=== PATIENT | female | born 1985 | race Caucasian/White ===

== ENCOUNTER 2016-12-04 18:01 | Emergency (ER) | payer OTHER ==
[2016-12-04] MEDS ORDERED: ACETAMINOPHEN 325 MG TABLET PO ONE (18:20)
--- NOTE | 2016-12-04 18:20 | ER Document Report ---
ED Medical Screen (RME) - General Stated Complaint: BODY CHILLS Notes: onset yesterday afternoon nasal drainage body aches, chills, fevers, dry cough (-) influenza vaccine I have greeted and performed a rapid initial assessment of this patient. A comprehensive ED assessment and evaluation of the patient, analysis of test results and completion of the medical decision making process will be conducted by additional ED providers. TRAVEL OUTSIDE OF THE [place] IN LAST 30 DAYS: No - Related Data Allergies/Adverse Reactions: No Known Allergies Allergy (Verified 12/04/16 18:19) Past Medical History Neurological Medical History: Reports: Hx Migraine, Hx Seizures - Patient states that she had a diagnosis of "stress-induced convulsions" - Immunizations Hx Diphtheria, Pertussis, Tetanus Vaccination: No
[2016-12-04] MEDS ORDERED: ONDANSETRON HCL 8 MG TABLET PO ONE (18:21)
--- NOTE | 2016-12-04 20:50 | ER Document Report ---
ED General - General Mode of Arrival: Ambulatory Information source: Patient TRAVEL OUTSIDE OF THE [place] IN LAST 30 DAYS: No - HPI Patient complains to provider of: Flu-like Symptoms Onset: Yesterday Onset/Duration: Gradual, Worse Associated symptoms: Body/muscle aches, Nonproductive cough, Fever, Headache, Sore throat - General Chief Complaint: Pain All Over Stated Complaint: BODY CHILLS Notes: Patient is a 31-year-old female presenting to the emergency department concerned of flulike symptoms onset yesterday. Patient reports she has been having body aches, nonproductive cough, sore throat, fever, and headache behind her eyes. Patient denies having any nasal congestion or runny nose. Patient has no other complaints. (VINCENT STOVALL) - Related Data Allergies/Adverse Reactions: No Known Allergies Allergy (Verified 12/04/16 18:19) Past Medical History - General Information source: Patient - Social History Smoking Status: Never Smoker Chew tobacco use (# tins/day): No Frequency of alcohol use: None Drug Abuse: None Lives with: Spouse/Significant other Family History: None, Reviewed & Not Pertinent Patient has suicidal ideation: No Patient has homicidal ideation: No Neurological Medical History: Reports: Hx Migraine, Hx Seizures - Patient states that she had a diagnosis of "stress-induced convulsions" Renal/ Medical History: Denies: Hx Peritoneal Dialysis - Immunizations Hx Diphtheria, Pertussis, Tetanus Vaccination: No Review of Systems - Review of Systems Constitutional: See HPI, Fever EENT: See HPI, Throat pain. denies: Nose congestion Cardiovascular: No symptoms reported Respiratory: See HPI, Cough Gastrointestinal: No symptoms reported Genitourinary: No symptoms reported Female Genitourinary: No symptoms reported Musculoskeletal: See HPI, Other - Body aches Skin: No symptoms reported Hematologic/Lymphatic: No symptoms reported Neurological/Psychological: See HPI, Headaches Physical Exam - Vital signs Interpretation: Febrile - General General appearance: Appears well, Alert - HEENT Head: Normocephalic, Atraumatic Eyes: Normal Pupils: PERRL Tympanic membrane: Normal Pharynx: Normal - Respiratory Respiratory status: No respiratory distress Chest status: Nontender Breath sounds: Nonproductive cough - harsh, dry cough Chest palpation: Normal - Cardiovascular Rhythm: Regular Heart sounds: Normal auscultation Murmur: No - Abdominal Inspection: Obese - Back Back: Normal, Nontender - Extremities General upper extremity: Normal inspection General lower extremity: Normal inspection - Neurological Neuro grossly intact: Yes Cognition: Normal Deep Coma Scale Eye Opening: Spontaneous Deep Coma Scale Verbal: Oriented Deep Coma Scale Motor: Obeys Commands [place] Coma Scale Total: 15 Speech: Normal - Psychological Associated symptoms: Normal affect, Normal mood - Skin Skin Temperature: Warm Skin Moisture: Dry Skin Color: Normal - Vital signs Vitals: Temp Pulse Resp BP Pulse Ox 102.0 F H 108 H 20 130/78 H 100 12/04/16 18:17 12/04/16 18:17 12/04/16 18:17 12/04/16 18:17 12/04/16 18:17 (JAYSON JAMESON) (VINCENT STOVALL) Discharge - Discharge Clinical Impression: Acute viral syndrome Additional Instructions: Viral Syndrome: The physician has diagnosed a viral infection. Viruses not only cause "colds," but can cause many different symptoms including generalized aching, fever, headache, cough, diarrhea, nausea, vomiting, and fatigue. The treatment, for the most part, is simply relief of symptoms. This means that antibiotics are usually not given. Rest, fluids, pain medications and, occasionally, medication for the specific symptoms that are most bothersome will be prescribed. Use good handwashing to avoid passing the virus to others. Shared toys should be cleaned with disinfectant. Clean the toilets, sinks, and counter surfaces in bathrooms. Launder clothing in hot water. Contact the physician if you develop any new or unusual symptoms such as severe headache, stiff neck, high fever, chest pain, productive cough, or shortness of breath. You should be rechecked if you don't see marked improvement within seven to 10 days. //////////////////////////////////////////////////////////////////////////////// ////////////////////////////////////////////////////////////////////////////// Drink plenty of fluids. Get plenty of rest and sleep Take Tylenol every 4 hours for fever, and Motrin or Aleve for the aches and pains. Try Robitussin-DM for cough control. Follow-up with a local medical doctor if not improving. RETURN TO THE EMERGENCY ROOM IF ANY NEW OR WORSENING SYMPTOMS. Scribe Attestation: 12/04/16 20:52 I personally performed the services described in the documentation, reviewed and edited the documentation which was dictated to the scribe in my presence, and it accurately records my words and actions. (JAYSON JMAESON) Scribe Documentation - Scribe Written by Nirmala:: Vincent Stovall 12/04/[id number] acting as scribe for :: Bharati
[2016-12-04 21:55] VITALS: BP 127/78
== END 2016-12-04 21:55 | disposition home or self-care (01) ==
LOC: ER 18:01
DX: R50.9 Fever, unspecified (principal); B34.9 Viral infection, unspecified; M79.1 Myalgia; R05 Cough; R51 Headache
CPT/HCPCS: 99283; 87070; 87880; 87804; S0119

== ENCOUNTER 2019-05-27 21:12 | Emergency (ER) | payer OTHER ==
[2019-05-28 01:34] LABS: APPEARANCE,URINE SLIGHTLY-CLOUDY; BILIRUBIN,URINE NEGATIVE (NEGATIVE); COLOR,URINE YELLOW; GLUCOSE, URINE NEGATIVE (NEGATIVE); KETONES,URINE TRACE mg/dL (NEGATIVE); LEUKOCYTE ESTERASE,URINE NEGATIVE (NEGATIVE); NITRITE,URINE NEGATIVE (NEGATIVE); PROTEIN,URINE NEGATIVE (NEGATIVE); URINE SPECIFIC GRAVITY 1.016; UROBILINOGEN,URINE NEGATIVE mg/dL (<2.0)
[2019-05-28 01:40] LABS: ABSOLUTE EOSINOPHILS # (AUTO) 0.2 10^3/uL (0.0-0.6); ABSOLUTE LYMPHOCYTES (AUTO) 4.1 10^3/uL (0.5-4.7); ABSOLUTE MONOCYTES (AUTO) 0.7 10^3/uL (0.1-1.4); ABSOLUTE NEUT (AUTO) 6.7 10^3/uL (1.7-8.2); BASOPHILS % (AUTO) 0.2 % (0-2); EOSINOPHILS % (AUTO) 1.8 % (0-6); HEMOGLOBIN 11.6 g/dL (12.0-15.5); LYMPHOCYTES % (AUTO) 34.8 % (13-45); MEAN CORPUSCULAR HEMOGLOBIN 26.6 pg (27.0-33.4); MEAN CORPUSCULAR HGB CONC 32.2 g/dL (32.0-36.0); MEAN CORPUSCULAR VOLUME 82 fl (80-97); MONOCYTES % (AUTO) 6.1 % (3-13); PLATELET COUNT 336 10^3/uL (150-450); RED BLOOD COUNT 4.37 10^6/uL (3.72-5.28); RED CELL DISTRIBUTION WIDTH 15.4 % (11.5-14.0); SEGMENTED NEUTROPHILS % (AUTO) 57.1 % (42-78); TOTAL CELLS COUNTED % (AUTO) 100 %; WHITE BLOOD COUNT 11.8 10^3/uL (4.0-10.5)
[2019-05-28 01:50] LABS: ALANINE AMINOTRANSFERASE 16 U/L (9-52); ALBUMIN 3.9 g/dL (3.5-5.0); ALKALINE PHOSPHATASE 54 U/L (38-126); ANION GAP 9 (5-19); ASPARTATE AMINO TRANSFERASE 18 U/L (14-36); BILIRUBIN,DIRECT 0.2 mg/dL (0.0-0.4); BILIRUBIN,TOTAL 0.4 mg/dL (0.2-1.3); BLOOD UREA NITROGEN 7 mg/dL (7-20); CARBON DIOXIDE 23 mmol/L (22-30); CHLORIDE 102 mmol/L (98-107); GLUCOSE 86 mg/dL (75-110); POTASSIUM 4.2 mmol/L (3.6-5.0); TOTAL PROTEIN 7.4 g/dL (6.3-8.2)
--- NOTE | 2019-05-28 02:35 | ER Document Report ---
ED General - General Chief Complaint: Abdominal Cramping Stated Complaint: CRAMPING, HEADACHE Time Seen by Provider: 05/28/19 02:23 Primary Care Provider: LOVE TORRES MD [NO LOCAL MD] - Follow up as needed Notes: Patient is a 34-year-old female, G1, P0 at 15 weeks gestation by first trimester ultrasound, that comes emergency department for chief complaint of generalized abdominal cramping intermittently and intermittent headaches. She denies trauma, vaginal bleeding, dysuria, fever/chills. She states occasionally she gets nauseated and vomits but this is not common. She is able to eat and hydrate. She states she just wants to be checked and see if she can get symptom management. TRAVEL OUTSIDE OF THE [place] IN LAST 30 DAYS: No - Related Data Allergies/Adverse Reactions: No Known Allergies Allergy (Verified 05/27/19 21:49) Past Medical History - General Information source: Patient - Social History Smoking Status: Never Smoker Frequency of alcohol use: None Drug Abuse: None Lives with: Family Family History: None, Reviewed & Not Pertinent Neurological Medical History: Reports: Hx Migraine, Hx Seizures - Patient states that she had a diagnosis of "stress-induced convulsions" Renal/ Medical History: Denies: Hx Peritoneal Dialysis Surgical Hx: Negative - Immunizations Hx Diphtheria, Pertussis, Tetanus Vaccination: Yes Review of Systems - Review of Systems Constitutional: No symptoms reported EENT: No symptoms reported Cardiovascular: No symptoms reported Respiratory: No symptoms reported Gastrointestinal: See HPI Genitourinary: No symptoms reported Female Genitourinary: See HPI Musculoskeletal: No symptoms reported Skin: No symptoms reported Hematologic/Lymphatic: No symptoms reported Neurological/Psychological: No symptoms reported Physical Exam - Vital signs Vitals: Temp Pulse Resp BP Pulse Ox 98.3 F 71 17 136/76 H 100 05/27/19 21:46 05/27/19 21:46 05/27/19 21:46 05/27/19 21:46 05/27/19 21:46 - Notes Notes: GENERAL: Alert, interacts well. No acute distress. HEAD: Normocephalic, atraumatic. EYES: Pupils equal, round, and reactive to light. Extraocular movements intact. ENT: Oral mucosa moist, tongue midline. Oropharynx unremarkable. Airway patent. N NECK: Full range of motion. Supple. Trachea midline. LUNGS: Clear to auscultation bilaterally, no wheezes, rales, or rhonchi. No respiratory distress. HEART: Regular rate and rhythm. No murmur ABDOMEN: Soft, non-tender. Non-distended. Bowel sounds present in all 4 quadrants. GENITOURINARY: Deferred EXTREMITIES: Moves all 4 extremities spontaneously. No edema, normal radial and dorsalis pedis pulses bilaterally. No cyanosis. BACK: no cervical, thoracic, lumbar midline tenderness. Mild tenderness of the right paracervical musculature. Range of motion intact. No saddle anesthesia, normal distal neurovascular exam. Moves all extremities in full range of motion. NEUROLOGICAL: Alert and oriented x3. Normal speech. Cranial nerves II through XII grossly intact. PSYCH: Normal affect, normal mood. SKIN: Warm, dry, normal turgor. No rashes or lesions noted. Course - Re-evaluation Re-evalutation: Patient describes her headache as a band across her head, intermittent. She has mild tenderness of the paracervical muscles on the right side. Suspect mild tension headaches. She is in no distress. No current complaints. Soft benign abdomen. heart tones are in the 140s. CBC, chemistry, urinalysis g enerally unremarkable. Discussed options with patient, provided her with Reglan for vomiting/headaches, discussed expectations, follow-up, and return precautions. Patient and significant other state satisfaction agreement. Stable at time of discharge. - Vital Signs Vital signs: Temp Pulse Resp BP Pulse Ox 98.3 F 64 18 128/68 H 99 05/28/19 03:00 05/28/19 03:00 05/28/19 03:00 05/28/19 03:00 05/28/19 03:00 - Laboratory Result Diagrams: 05/28/19 01:11 05/28/19 01:11 Laboratory results interpreted by me: 05/28/19 05/28/19 05/28/19 01:11 01:11 01:11 WBC 11.8 H Hgb 11.6 L MCH 26.6 L RDW 15.4 H Sodium 134.4 L Urine Ketones TRACE H Urine Ascorbic Acid 40 H Urine HCG, Qual POSITIVE H Discharge - Discharge Clinical Impression: Abdominal cramping, Frequent headaches Condition: Stable Disposition: HOME, SELF-CARE Additional Instructions: Your laboratory work-up is reassuring. Your symptoms are suggestive of a tension headache. I recommend heat over your neck and massage, take the Reglan if needed for headache, take Benadryl if needed, you can combine this with acetaminophen. For the abdominal cramping, this appears normal, you can also try the Colace stool softener. This is [id number]. Follow-up with primary care. Return if you worsen including vomiting, fever, bleeding vaginally, or any other concerning or worsening symptoms. Prescriptions: Metoclopramide HCl [Reglan] 5 mg PO ASDIR PRN #30 tablet PRN Reason: Forms: Return to Work Referrals: LOVE TORRES MD [NO LOCAL MD] - Follow up as needed
[2019-05-28 03:23] VITALS: BP 128/68
== END 2019-05-28 03:05 | disposition home or self-care (01) ==
LOC: ER 21:12
DX: O26.892 Other specified pregnancy related conditions, second trimester (principal); R10.9 Unspecified abdominal pain; R51 Headache; Z3A.15 15 weeks gestation of pregnancy
CPT/HCPCS: 36415; 80053; 81001; 81025; 83690; 85025; 99284

== ENCOUNTER 2019-11-04 15:55 | Outpatient (CLI) | payer OTHER, MEDICAID ==
[2019-11-04 16:37] LABS: APPEARANCE,URINE SLIGHTLY-CLOUDY; BILIRUBIN,URINE NEGATIVE (NEGATIVE); COLOR,URINE YELLOW; GLUCOSE, URINE NEGATIVE (NEGATIVE); KETONES,URINE NEGATIVE (NEGATIVE); LEUKOCYTE ESTERASE,URINE MODERATE (NEGATIVE); NITRITE,URINE NEGATIVE (NEGATIVE); PROTEIN,URINE NEGATIVE (NEGATIVE); URINE SPECIFIC GRAVITY 1.005; UROBILINOGEN,URINE NEGATIVE mg/dL (<2.0)
[2019-11-04 16:56] LABS: URINE AMPHETAMINES SCREEN NEGATIVE; URINE BARBITURATES SCREEN NEGATIVE; URINE BENZODIAZEPINES SCREEN NEGATIVE; URINE COCAINE SCREEN NEGATIVE; URINE MARIJUANA (THC) SCREEN NEGATIVE; URINE METHADONE SCREEN NEGATIVE; URINE PHENCYCLIDINE SCREEN NEGATIVE
--- NOTE | 2019-11-04 17:14 | Non Stress Test Report ---
Non Stress Test Datetime Report Generated by CPN: 11/04/2019 17:13 DEMOGRAPHIC EGA NST: 30.0 INDICATION Indication for Study (NST) Other: false labor Indication for Study (NST) Other: LABOR CHECK VITAL SIGNS Temperature - NST: 98.0 MONITORING Monitor Explained: Monitor Explained; Test Explained Monitor Explained: Monitor Explained; Test Explained; Patient Verbalized Understanding Time on Monitor: 11/04/2019 16:19 Time on Monitor: 11/04/2019 16:20 Time off Monitor: 11/04/2019 17:11 NST Duration: 52 NST INTERVENTIONS NST Interventions: Reposition Patient NST Interventions: PO Hydration; Reposition Patient Physician Notified NST: A. Gloria CNM BABY A: [id number] BABY A Movement : Present Movement : Present Contraction Frequency : irregular Contraction Frequency : OCC FHR Baseline : 145 FHR Baseline : 145 Accelerations : 15X15 Accelerations : 15X15 Decelerations : None Decelerations : None Variability : Moderate 6-25bpm Variability : Moderate 6-25bpm NST Review: Meets Criteria for Reactive NST NST Review: Meets Criteria for Reactive NST NST Review and Verified By : Trino Donohue RN NST Results: Reactive NST Results: Reactive NST REPORT Report Trigger: Send Report
== END 2019-11-04 17:10 | disposition home or self-care (01) ==
LOC: LC 15:55
PROVIDERS: ATTEND Student in an Organized Health Care Education/Training Program
PROC: 4A1HXCZ Monitoring of Products of Conception, Cardiac Rate, External Approach (ICD-10-PCS; principal; 2019-11-04)
DX: O47.1 False labor at or after 37 completed weeks of gestation (principal); Z3A.38 38 weeks gestation of pregnancy
CPT/HCPCS: 59025; 80307; 81005

== ENCOUNTER 2019-11-17 16:41 | Outpatient (CLI) | payer OTHER, MEDICAID ==
--- NOTE | 2019-11-18 02:08 | Non Stress Test Report ---
Non Stress Test Datetime Report Generated by CPN: 11/18/2019 02:07 DEMOGRAPHIC EGA NST: 40.1 VITAL SIGNS Temperature - NST: 98.4 MONITORING Monitor Explained: Monitor Explained; Test Explained; Patient Verbalized Understanding Time on Monitor: 11/17/2019 18:09 Time off Monitor: 11/17/2019 18:34 NST Duration: 25 NST INTERVENTIONS NST Interventions: Meal Given; Reposition Patient Physician Notified NST: Dr. Naik on unit, reviewed fht BABY A: [id number] BABY A Movement : Present Contraction Frequency : occasional FHR Baseline : 145 Accelerations : 15X15 Decelerations : None Variability : Moderate 6-25bpm NST Review: Meets Criteria for Reactive NST NST Review and Verified By : Paddy Pro RN NST Results: Reactive NST REPORT Report Trigger: Send Report
== END 2019-11-17 18:43 | disposition home or self-care (01) ==
LOC: LC 16:41
PROVIDERS: ATTEND Obstetrics & Gynecology
PROC: 4A1HXCZ Monitoring of Products of Conception, Cardiac Rate, External Approach (ICD-10-PCS; principal; 2019-11-17)
DX: O48.0 Post-term pregnancy (principal); Z3A.40 40 weeks gestation of pregnancy
CPT/HCPCS: 59025

== ENCOUNTER 2019-11-18 02:13 | Outpatient (CLI) | payer OTHER, MEDICAID ==
[2019-11-18 02:53] LABS: APPEARANCE,URINE SLIGHTLY-CLOUDY; BILIRUBIN,URINE NEGATIVE (NEGATIVE); COLOR,URINE YELLOW; GLUCOSE, URINE NEGATIVE (NEGATIVE); KETONES,URINE NEGATIVE (NEGATIVE); LEUKOCYTE ESTERASE,URINE LARGE (NEGATIVE); NITRITE,URINE NEGATIVE (NEGATIVE); PROTEIN,URINE NEGATIVE (NEGATIVE); URINE SPECIFIC GRAVITY 1.008; UROBILINOGEN,URINE NEGATIVE mg/dL (<2.0)
[2019-11-18 03:10] LABS: URINE AMPHETAMINES SCREEN NEGATIVE; URINE BARBITURATES SCREEN NEGATIVE; URINE BENZODIAZEPINES SCREEN NEGATIVE; URINE COCAINE SCREEN NEGATIVE; URINE MARIJUANA (THC) SCREEN NEGATIVE; URINE METHADONE SCREEN NEGATIVE; URINE PHENCYCLIDINE SCREEN NEGATIVE
--- NOTE | 2019-11-18 04:23 | Non Stress Test Report ---
Non Stress Test Datetime Report Generated by CPN: 11/18/2019 04:22 DEMOGRAPHIC EGA NST: 40.2 INDICATION Indication for Study (NST) Other: Labor Check MONITORING Monitor Explained: Monitor Explained; Test Explained; Patient Verbalized Understanding Time on Monitor: 11/18/2019 02:32 Time off Monitor: 11/18/2019 02:52 NST Duration: 20 NST INTERVENTIONS NST Interventions: PO Hydration BABY A Movement : Present Contraction Frequency : Irregular FHR Baseline : 145 Accelerations : 15X15 Decelerations : None Variability : Moderate 6-25bpm NST Review: Meets Criteria for Reactive NST NST Review and Verified By : Burton Johns RN NST Results: Reactive NST REPORT Report Trigger: Send Report
== END 2019-11-18 04:23 | disposition home or self-care (01) ==
LOC: LC 02:13
PROVIDERS: ATTEND Obstetrics & Gynecology
PROC: 4A1HXCZ Monitoring of Products of Conception, Cardiac Rate, External Approach (ICD-10-PCS; principal; 2019-11-18)
DX: O48.0 Post-term pregnancy (principal); Z3A.40 40 weeks gestation of pregnancy
CPT/HCPCS: 59025; 80307; 81005

== ENCOUNTER 2019-11-18 19:20 | Outpatient (CLI) | payer OTHER, MEDICAID ==
[2019-11-18 20:08] LABS: APPEARANCE,URINE CLOUDY; BILIRUBIN,URINE NEGATIVE (NEGATIVE); COLOR,URINE YELLOW; GLUCOSE, URINE NEGATIVE (NEGATIVE); KETONES,URINE 20 mg/dL (NEGATIVE); LEUKOCYTE ESTERASE,URINE MODERATE (NEGATIVE); NITRITE,URINE NEGATIVE (NEGATIVE); PROTEIN,URINE NEGATIVE (NEGATIVE); URINE SPECIFIC GRAVITY 1.006; UROBILINOGEN,URINE NEGATIVE mg/dL (<2.0)
[2019-11-18 20:25] LABS: URINE AMPHETAMINES SCREEN NEGATIVE; URINE BARBITURATES SCREEN NEGATIVE; URINE BENZODIAZEPINES SCREEN NEGATIVE; URINE COCAINE SCREEN NEGATIVE; URINE MARIJUANA (THC) SCREEN NEGATIVE; URINE METHADONE SCREEN NEGATIVE; URINE PHENCYCLIDINE SCREEN NEGATIVE
[2019-11-18] MEDS ORDERED: HYDROXYZINE PAMOATE 50 MG CAPSULE ONE (21:30)
--- NOTE | 2019-11-18 21:50 | Non Stress Test Report ---
Non Stress Test Datetime Report Generated by CPN: 11/18/2019 21:50 DEMOGRAPHIC EGA NST: 40.2 INDICATION Indication for Study (NST) Other: pain management MONITORING Monitor Explained: Monitor Explained; Test Explained; Patient Verbalized Understanding Time on Monitor: 11/18/2019 19:53 Time off Monitor: 11/18/2019 21:31 NST Duration: 98 NST INTERVENTIONS NST Interventions: PO Hydration; Reposition Patient Physician Notified NST: Dr Hubbard BABY A: [id number] BABY A Movement : Present Contraction Frequency : rare FHR Baseline : 145 Accelerations : 15X15 Decelerations : None Variability : Moderate 6-25bpm NST Review: Meets Criteria for Reactive NST NST Review and Verified By : ALISSON Naranjo Results: Reactive NST REPORT Report Trigger: Send Report
[2019-11-18] MEDS ORDERED: HYDROXYZINE PAMOATE 50 MG CAPSULE PO ONE (22:30)
== END 2019-11-18 22:05 | disposition home or self-care (01) ==
LOC: LC 19:20
PROVIDERS: ATTEND Obstetrics & Gynecology
DX: O48.0 Post-term pregnancy (principal); Z3A.40 40 weeks gestation of pregnancy
CPT/HCPCS: 59025; 80307; 81005

== ENCOUNTER 2019-11-19 10:24 | Inpatient (IN) | payer OTHER, MEDICAID ==
[2019-11-19] MEDS ORDERED: HYDROXYZINE PAMOATE 50 MG CAPSULE PO ONE (10:37)
[2019-11-19] MEDS ORDERED: RINGERS SOLUTION,LACTATED 1,000 ML IV PRN (10:38)
[2019-11-19] MEDS ORDERED: HYDROXYZINE PAMOATE 50 MG CAPSULE ONE (11:04)
[2019-11-19 11:07] LABS: APPEARANCE,URINE CLOUDY; BILIRUBIN,URINE NEGATIVE (NEGATIVE); COLOR,URINE YELLOW; GLUCOSE, URINE NEGATIVE (NEGATIVE); KETONES,URINE 20 mg/dL (NEGATIVE); LEUKOCYTE ESTERASE,URINE LARGE (NEGATIVE); NITRITE,URINE NEGATIVE (NEGATIVE); PROTEIN,URINE NEGATIVE (NEGATIVE); UROBILINOGEN,URINE NEGATIVE mg/dL (<2.0)
[2019-11-19] MEDS: RINGERS SOLUTION,LACTATED 1,000 ML IV PRN ×2 (11:08→13:08)
[2019-11-19 11:35] LABS: URINE AMPHETAMINES SCREEN NEGATIVE; URINE BARBITURATES SCREEN NEGATIVE; URINE BENZODIAZEPINES SCREEN NEGATIVE; URINE COCAINE SCREEN NEGATIVE; URINE MARIJUANA (THC) SCREEN NEGATIVE; URINE METHADONE SCREEN NEGATIVE; URINE PHENCYCLIDINE SCREEN NEGATIVE
[2019-11-19] MEDS ORDERED: PENICILLIN G POTASSIUM 5,000,000 UNIT in DEXTROSE 5%-WATER 100 ML IV ONE (12:56)
[2019-11-19] MEDS ORDERED: PENICILLIN G-K 5 MILLION UNIT VIAL ONE ×3 (12:56→20:52)
[2019-11-19] MEDS ORDERED: OXYTOCIN/NORMAL SALINE 20 UNIT/1,000 ML RTUINJ IV PRN ×2 (12:56→21:09)
[2019-11-19] MEDS ORDERED: EPHEDRINE SULFATE INJ 50 MG/1 ML AMPULE ONE (13:48)
[2019-11-19] MEDS ORDERED: LIDOCAINE 1% INJ-PF (10 MG/ML) 30 ML SDV ONE (13:48)
[2019-11-19] MEDS ORDERED: BUPIVACAINE HCL 0.25 % INJ/PF (2.5 MG/1 ML) 30 ML VIAL ONE (13:48)
[2019-11-19] MEDS ORDERED: OXYTOCIN 10 UNIT/ML VIAL ONE (13:48)
[2019-11-19] MEDS ORDERED: FENTANYL/BUPIVACAINE/NS/PF 300 MCG/150 ML RTUINJ EPI ONE (13:48)
[2019-11-19] MEDS ORDERED: MISOPROSTOL 0.2 MG TABLET ONE (13:48)
[2019-11-19] MEDS ORDERED: OXYTOCIN/NORMAL SALINE 20 UNIT/1,000 ML RTUINJ ONE (13:48)
[2019-11-19 13:55] LABS: HEMATOCRIT 37.8 % (36.0-47.0); HEMOGLOBIN 12.2 g/dL (12.0-15.5); MEAN CORPUSCULAR HEMOGLOBIN 26.6 pg (27.0-33.4); MEAN CORPUSCULAR HGB CONC 32.3 g/dL (32.0-36.0); MEAN CORPUSCULAR VOLUME 83 fl (80-97); PLATELET COUNT 236 10^3/uL (150-450); RED BLOOD COUNT 4.58 10^6/uL (3.72-5.28); RED CELL DISTRIBUTION WIDTH 19.9 % (11.5-14.0); WHITE BLOOD COUNT 10.5 10^3/uL (4.0-10.5)
--- NOTE | 2019-11-19 14:11 | Admission Physical ---
Datetime Report Generated by CPN: 11/19/2019 14:10 CURRENT ADMISSION Hx Assessment: The History has been Reviewed and is Current Chief Complaint: Uterine Contractions; Suspected Ruptured Membranes Admit Impression : Term, Intrauterine ; No Active Labor; Ruptured Membranes Admit Plan: Initiate Labor Protocol; Initiate Labor Augmentation Protocol ALLERGIES Medication Allergies: No Medication Allergies: No Known Allergies (11/19/2019) Latex: No Latex Allergies Environmental Allergies: pollen OBSTETRICAL HISTORY EDC: 11/16/2019 00:00 : 1 Para: 0 Term: 0 : 0 SAB: 0 IAB: 0 Ectopic: 0 Livin Cesareans: 0 VBACs: 0 Multiple Births: 0 Gestational Diabetes: No Rh Sensitization: No Incompetent Cervix: No TEZ: No Infertility: No ART Treatment: Yes Uterine Anomaly: No IUGR: No Hx Previous C/S: No Macrosomia: No Hx Loss/Stillborn: No PIH: No Hx : No Placenta Previa/Abruption: No Depression/PP Depression: No PTL/PROM: No Post Hemorrhage: No Current Procedures: Ultrasound; NST Obstetrical History Comments: G1; current SEE RECORDS Alcohol: No Marijuana : No Cocaine: No Other Illicit Drugs: No Cigarettes: Former Smoker. 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 Heart Disease: No Hosp/Surgery: Yes Autoimmune Disorder: No Anesthetic Complications: No Kidney Disease: No Abnormal Pap Smear: Yes Neuro/Epilepsy: Yes Psychiatric Disorders: No Other Medical Diseases: No Hepatitis/Liver Disease: No Significant Family History: No Varicosities/Phlebitis: No Trauma/Violence : No Thyroid Dysfunction: No Medical History Comments: stress induced seizure disorder, laproscopy, cryotherapy, endometriosis, hpv, ovarian cyst INFECTIOUS HISTORY Gonorrhea: No Genital Herpes: No Chlamydia: No Tuberculosis: No Syphilis: No Hepatitis: No HIV/AIDS Exposure: No Rash or Viral Illness: No HPV: Yes PHYSICAL EXAM General: Normal Heart: Normal Lungs: Normal Abdomen: Normal Vital Signs: Reviewed Details Vital Signs: several mild range- will continue to monitor for need for pre-e labs VAGINAL EXAM Contraction Comments: irregular MEMBRANES Membranes: Ruptured FETUS A EGA: 40.3 Monitoring: External US Variability: Moderate 6-25bpm Accelerations: Absent FHR Category: Category II FHR Comments: pt with reactive NST prior to vistaril then SROM with exam by Dr. Cash Presentation: Vertex Admit Comment: 34yo G1 @ 40w3d sent from the office with contractions that have been going on since yesterday and increasing in discomfort. Pt. was rested with vistaril after admission and contractions were very irregular. Recheck by Dr. Cash was found to have cervical scar tissue and with exam immediately progressed to 4cm and and SROM as stated. Pt. will be augmented with pitocin at this time per Dr. Cash. Pt is also A pos, RI, GBS positive (first dose of PCN given on admission). Significant medical hx includes BMI >40 at NOB, hx of chlamydia and anemia with this . Pt. is also a former smoker. Epidural prn. Dr. Cash assessed pt. 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 PLANS FOR LABOR AND DELIVERY Labor and Delivery: Plan Pain Management: Medications Feeding Preference: Breast Benefit of Breast Feed Discussed: Yes Circumcision: N/A INFORMED CONSENT Assignment: Desiree Cash MD Signature: with User ID: Jose : with User ID: Jose
[2019-11-19 14:17] LABS: ABSOLUTE LYMPHOCYTES# (MANUAL) 1.8 10^3/uL (0.5-4.7); ABSOLUTE MONOCYTES # (MANUAL) 0.4 10^3/uL (0.1-1.4); BAND NEUTROPHILS % (MANUAL) 1 % (3-5); BASOPHILS % (MANUAL) 0 % (0-2); EOSINOPHILS % (MANUAL) 1 % (0-6); LYMPHOCYTES % (MANUAL) 17 % (13-45); MONOCYTES % (MANUAL) 4 % (3-13); SEGMENTED NEUTROPHILS % (MAN) 77 % (42-78); TOTAL CELLS COUNTED 100
[2019-11-19 14:18] LABS: ANISOCYTOSIS 2+; OVALOCYTES SLIGHT; PLATELET COMMENT ADEQUATE; POIKILOCYTOSIS SLIGHT; TEAR DROP CELLS SLIGHT
[2019-11-19] MEDS: PENICILLIN G POTASSIUM 2,500,000 UNIT in DEXTROSE 5%-WATER 50 ML IV SCH ×2 (17:03→21:11)
[2019-11-19] MEDS ORDERED: PROMETHAZINE HCL INJ 25 MG/1 ML VIAL IV PRN (21:09)
[2019-11-19] MEDS ORDERED: DIPH/PERTUSS(ACELL)/TETANUS VAC/PF 0.5 ML SYR (>=10YO) IM PRN (21:09)
[2019-11-19] MEDS ORDERED: DIBUCAINE 1% OINTMENT 28 GM TP PRN (21:09)
[2019-11-19] MEDS ORDERED: ZOLPIDEM TARTRATE 5 MG TABLET PO PRN (21:09)
[2019-11-19] MEDS ORDERED: ACETAMINOPHEN 325 MG TABLET PO PRN (21:09)
[2019-11-19] MEDS ORDERED: MAGNESIUM HYDROXIDE SUSP 30 ML UDCUP PO PRN (21:09)
[2019-11-19] MEDS ORDERED: PROMETHAZINE HCL 25 MG TABLET PO PRN (21:09)
[2019-11-19] MEDS ORDERED: BENZOCAINE/MENTHOL AEROSOL SPRAY 56 ML TOP PRN (21:09)
[2019-11-19] MEDS ORDERED: PROMETHAZINE HCL 25 MG SUPP.RECT PR PRN (21:09)
[2019-11-19] MEDS ORDERED: ACETAMINOPHEN WITH CODEINE #3 TABLET PO PRN ×2 (21:09)
[2019-11-19] MEDS ORDERED: DIPHENHYDRAMINE HCL 25 MG CAPSULE PO PRN (21:09)
[2019-11-19] MEDS ORDERED: NA PHOS,M-B/NA PHOS,DI-BA (ADULT) 133 ML ENEMA PR PRN (21:09)
[2019-11-19] MEDS ORDERED: MEASLES,MUMPS&RUBELLA VACC/PF 0.5 ML VIAL SUBCUT PRN (21:09)
[2019-11-19] MEDS ORDERED: GLYCERIN/WITCH HAZEL LEAF 1 EACH MED..WIPE TP PRN (21:09)
[2019-11-19] MEDS ORDERED: PSEUDOEPHEDRINE HCL 30 MG TABLET PO PRN (21:09)
[2019-11-19] MEDS ORDERED: IBUPROFEN 800 MG TABLET PO SCH (22:00)
--- NOTE | 2019-11-20 00:32 | Delivery Summary ---
Del Sum A-C Datetime Report Generated by CPN: 11/20/2019 00:32 DELIVERY PERSONNEL DELIVERY PERSONNEL: [id number] Delivery Doctor:: Desiree Miguel MD Anesthesiologist:: Casey Ferrell MD Labor and Delivery Nurse:: Kathy Avelar RNpolisher apprentice Nurse:: Leslie Zaidi RN Nursery Nurse:: Crista Renteria RN MSN Senior Administrative Services Officer/CONTRACTOR BROOMCORN THRESHING: Gretel Brandon, DATA MANAGEMENT MANAGER MATERNAL INFORMATION Delivery Anesthesia: Epidural Medications After Delivery: Pitocin Bolus-Please Comment Meds After Delivery Comment: Pitocin 20 units/1000ml NSS Estimated Blood Loss (ml): 50 Delivery QBL: 50 Delivery QBL Comment: 50 Maternal Complications: None Provider Comments: VFI delivered in SAILAJA presentation. No nuchal cord. Shoulders and body delivered without difficulty. Cord doubly clamped and cut and to maternal abdomen. placenta delivered intact spontaneously. FF at U. 1st degree perineal laceration repaired. Mother and baby stable upon provider leaving the room. Good hemostasis. LABOR SUMMARY EDC: 11/16/2019 00:00 No. Babies in Womb: 1 Attempted: No Labor Anesthesia: Epidural LABOR INFORMATION Reason for Induction: Not Applicable Onset of Labor: 11/19/2019 12:49 Complete Dilatation: 11/19/2019 21:04 Oxytocin: Augmentation Group B Beta Strep: positive Antibiotics # of Doses: 3 Antibiotics Time of Last Dose: 2110 Name of Antibiotic Given: PCN Steroids Given: None Reason Steroids Not Administered: Not Applicable MEMBRANES Membranes Rupture Method: Spontaneous Rupture of Membranes: 11/19/2019 12:49 Length of Rupture (hr): 9.87 Amniotic Fluid Color: Light Meconium Amniotic Fluid Amount: Small STAGES OF LABOR Stage 1 hr: 8 Stage 1 min: 15 Stage 2 hr: 1 Stage 2 min: 37 Stage 3 hr: 0 Stage 3 min: 5 Total Time in Labor hr: 9 Total Time in Labor min: 57 VAGINAL DELIVERY Episiotomy: None Laceration #1: Vaginal Laceration Extension #1: First Degree Laceration Repair: Yes Laceration Repair Note: repaired in usual fashion, good hemostasis Sponge Count Correct: Yes Sharps Count Correct: Yes CSECTION DELIVERY Primary Indication: N/A Secondary Indication: N/A CSection Incidence: N/A Labor: N/A Elective: N/A CSection Incision: N/A BABY A INFORMATION Infant Delivery Date/Time: 11/19/2019 22:41 Method of Delivery: Vaginal Born in Route : No : N/A Forceps: N/A Vacuum Extraction: N/A Shoulder Dystocia : No PRESENTATION/POSITION BABY A Presentation: Cephalic Cephalic Presentation: Vertex Vertex Position: Right Occipital Anterior Breech Presentation: N/A PLACENTA INFORMATION BABY A Placenta Delivery Time : 11/19/2019 22:46 Placenta Method of Delivery: Spontaneous Placenta Status: Delivered SCORES BABY A Heart Rate 1 min: >100 bpm Resp Effort 1 min: Good Cry Reflex Irritability 1 min: Cough or Sneeze or Pulls Away Muscle Tone 1 min: Active Motion Color 1 min: Body [place], Extremities Blue Resuscitation Effort 1 min: Tactile Stimulation SCORE 1 MIN: 9 Heart Rate 5 min: >100 bpm Resp Effort 5 min: Good Cry Reflex Irritability 5 min: Cough or Sneeze or Pulls Away Muscle Tone 5 min: Active Motion Color 5 min: Body [place], Extremities Blue Resuscitation Effort 5 min: Tactile Stimulation SCORE 5 MIN: 9 INFORMATION BABY A Gestational Age at Delivery: 40.3 Gestational Status: Full Term- 39- 40.6 Weeks Outcome : Liveborn Condition : Stable Sex: Female IDENTIFICATION BABY A Verification Date/Time: 11/19/2019 22:50 ID Band Number: [id number] Mother's Name Verified: Yes RN Verifying : J, RN and C.Cotterman, RN WEIGHT/LENGTH BABY A Birthweight (gm): 3510 Infant Weight (lb): 7 Weight (oz): 12 Length (in): 20.00 Length (cm): 50.80 CORD INFORMATION BABY A No. Cord Vessels: 3 Nuchal Cord : N/A Cord Blood Taken: Yes-For Storage (Mom's Blood type +) Infant Suction: Mouth ASSESSMENT BABY A Skin to Skin: Yes BABY B INFORMATION : N/A SIGNATURES Signature: with User ID: [email or web address]
[2019-11-20] MEDS ORDERED: IBUPROFEN 800 MG TABLET ONE (00:37)
[2019-11-20] MEDS ORDERED: FAMOTIDINE 20 MG TABLET ONE (00:37)
[2019-11-20] MEDS: FAMOTIDINE 20 MG TABLET PO SCH ×2 (00:39→10:09)
--- NOTE | 2019-11-20 01:03 | Warning Signs in Babies ---
VOD Warning Signs Datetime Report Generated by [facility]: 11/20/2019 01:03 VOD#[id number] -Warning Signs in Babies: Viewed with Parent(s)/Family (11/04/2019 16:58:Kathy Avelar RN)
--- NOTE | 2019-11-20 01:04 | Warning Signs in Babies ---
VOD Warning Signs Datetime Report Generated by [facility]: 11/20/2019 01:04 VOD#[id number] -Warning Signs in Babies: Viewed with Parent(s)/Family (11/20/2019 01:03:Kathy Avelar RN)
[2019-11-20 07:09] LABS: HEMATOCRIT 30.1 % (36.0-47.0); MEAN CORPUSCULAR HEMOGLOBIN 26.3 pg (27.0-33.4); MEAN CORPUSCULAR HGB CONC 32.3 g/dL (32.0-36.0); MEAN CORPUSCULAR VOLUME 82 fl (80-97); PLATELET COUNT 196 10^3/uL (150-450); RED CELL DISTRIBUTION WIDTH 19.9 % (11.5-14.0); WHITE BLOOD COUNT 18.7 10^3/uL (4.0-10.5)
[2019-11-20 07:11] LABS: HEMOGLOBIN 9.7 g/dL (12.0-15.5)
[2019-11-20] MEDS: FERROUS SULFATE 325 MG TABLET PO SCH ×2 (10:08→17:21)
[2019-11-20] MEDS: DOCUSATE SODIUM 100 MG CAPSULE PO SCH ×2 (10:08→17:21)
[2019-11-20] MEDS: PRENATAL VITAMIN W DHA CAPSULE PO SCH (10:08)
[2019-11-20] MEDS: SENNOSIDES/DOCUSATE 8.6-50 MG 1 EACH TABLET PO SCH (10:08)
[2019-11-20] MEDS: IBUPROFEN 800 MG TABLET PO SCH ×2 (10:08→17:21)
--- NOTE | 2019-11-20 14:18 | PDOC PROGRESS REPORT ---
Subjective Progress Note for:: 11/20/19 Subjective:: She reports that she is doing well today. Reason For Visit: Physical Exam - Physical Exam Vital Signs: Temp Pulse Resp BP Pulse Ox 97.6 F 78 16 124/68 100 11/20/19 07:52 11/20/19 07:52 11/20/19 07:52 11/20/19 07:52 11/20/19 07:52 Intake & Output 11/19/19 11/20/19 11/21/19 06:59 06:59 06:59 Intake Total 1000 400 Balance 1000 400 Weight 102.3 kg General appearance: PRESENT: no acute distress, well-developed, well-nourished Extremities exam: PRESENT: full ROM. ABSENT: calf tenderness, clubbing, pedal edema Result Laboratory Results: 11/20/19 06:32 11/19/19 11/19/19 11/20/19 13:16 13:16 06:32 WBC 10.5 18.7 H RBC 4.58 3.70 L Hgb 12.2 9.7 L D Hct 37.8 30.1 L MCV 83 82 MCH 26.6 L 26.3 L MCHC 32.3 32.3 RDW 19.9 H 19.9 H Plt Count 236 196 Seg Neutrophils % Not Reportable Blood Type A POSITIVE Antibody Screen NEGATIVE Assessment & Plan - Diagnosis (1) Anemia due to blood loss Is this a current diagnosis for this admission?: Yes (2) Vaginal delivery Is this a current diagnosis for this admission?: Yes - Time Time Spent with patient: Less than 15 minutes Medications reviewed and adjusted accordingly: Yes Anticipated discharge: Home Within: within 48 hours
[2019-11-20] MEDS ORDERED: FAMOTIDINE 20 MG TABLET PO ONE (22:15)
[2019-11-21] MEDS: IBUPROFEN 800 MG TABLET PO SCH ×2 (03:03→09:37)
[2019-11-21] MEDS ORDERED: SIMETHICONE 80 MG TAB.CHEW PO PRN (08:37)
[2019-11-21] MEDS: DOCUSATE SODIUM 100 MG CAPSULE PO SCH (09:37)
[2019-11-21] MEDS: FERROUS SULFATE 325 MG TABLET PO SCH (09:37)
[2019-11-21] MEDS: PRENATAL VITAMIN W DHA CAPSULE PO SCH (09:37)
[2019-11-21] MEDS: SENNOSIDES/DOCUSATE 8.6-50 MG 1 EACH TABLET PO SCH (09:37)
[2019-11-21] MEDS ORDERED: FAMOTIDINE 20 MG TABLET PO SCH (10:00)
[2019-11-21 11:32] LABS: ABSOLUTE BASOPHILS # (AUTO) 0.1 10^3/uL (0.0-0.2); ABSOLUTE EOSINOPHILS # (AUTO) 0.2 10^3/uL (0.0-0.6); ABSOLUTE LYMPHOCYTES (AUTO) 3.3 10^3/uL (0.5-4.7); ABSOLUTE MONOCYTES (AUTO) 0.9 10^3/uL (0.1-1.4); BASOPHILS % (AUTO) 0.7 % (0-2); EOSINOPHILS % (AUTO) 1.3 % (0-6); HEMATOCRIT 31.4 % (36.0-47.0); HEMOGLOBIN 10.1 g/dL (12.0-15.5); LYMPHOCYTES % (AUTO) 26.5 % (13-45); MEAN CORPUSCULAR HEMOGLOBIN 26.4 pg (27.0-33.4); MEAN CORPUSCULAR HGB CONC 32.2 g/dL (32.0-36.0); MEAN CORPUSCULAR VOLUME 82 fl (80-97); MONOCYTES % (AUTO) 7.2 % (3-13); PLATELET COUNT 198 10^3/uL (150-450); RED BLOOD COUNT 3.82 10^6/uL (3.72-5.28); RED CELL DISTRIBUTION WIDTH 19.7 % (11.5-14.0); SEGMENTED NEUTROPHILS % (AUTO) 64.3 % (42-78); TOTAL CELLS COUNTED % (AUTO) 100 %; WHITE BLOOD COUNT 12.5 10^3/uL (4.0-10.5)
[2019-11-21 11:51] LABS: ALBUMIN 2.6 g/dL (3.5-5.0); ALKALINE PHOSPHATASE 96 U/L (38-126); ANION GAP 8 (5-19); ASPARTATE AMINO TRANSFERASE 36 U/L (14-36); BILIRUBIN,DIRECT 0.2 mg/dL (0.0-0.4); BILIRUBIN,TOTAL 0.4 mg/dL (0.2-1.3); BLOOD UREA NITROGEN 9 mg/dL (7-20); CALCIUM 8.9 mg/dL (8.4-10.2); CARBON DIOXIDE 23 mmol/L (22-30); CHLORIDE 105 mmol/L (98-107); GLUCOSE 76 mg/dL (75-110); POTASSIUM 3.9 mmol/L (3.6-5.0); TOTAL PROTEIN 5.7 g/dL (6.3-8.2)
--- NOTE | 2019-11-21 12:19 | PDOC DISCHARGE SUMMARY ---
Impression - Admit/DC Date/PCP Admission Date/Primary Care Provider: 11/19/19 12:53 RUBEN VAELNTIN MD Discharge Date: 11/21/19 - PP Day #2, pt desires to go home today, c/o some pain under her left breast and rib area. Unsure if it is gas or a pulled muscle, den ies N&V. CBC and CMP labwork done today, both normal. She is - Discharge Diagnosis (1) Anemia due to blood loss Is this a current diagnosis for this admission?: Yes (2) Carrier or suspected carrier of group B Streptococcus Is this a current diagnosis for this admission?: Yes (3) Meconium in amniotic fluid affecting management of mother, antepartum Is this a current diagnosis for this admission?: Yes (4) Obstetrical laceration, first degree Is this a current diagnosis for this admission?: Yes (5) Spontaneous rupture of membranes Is this a current diagnosis for this admission?: Yes (6) Vaginal delivery Is this a current diagnosis for this admission?: Yes (7) Seizure disorder during Is this a current diagnosis for this admission?: Yes - Additional Information Resuscitation Status: Full Code Discharge Diet: As Tolerated, Regular Discharge Activity: Activity As Tolerated, No Lifting Over 10 Pounds, Pelvic Rest Referrals: [facility] [Provider Group] Prescriptions: Ibuprofen [Motrin 800 mg Tablet] 800 mg PO Q8A #60 tablet Home Medications: Pnv No.95/Ferrous Fum/Folic AC [ Caplet] 1 tab PO DAILY 11/04/19 Ibuprofen [Motrin 800 mg Tablet] 800 mg PO Q8A #60 tablet 11/21/19 HPI Reason(s) for Admission: Onset of Labor Procedures: Ultrasound Intrapartum Procedure(s): Spontaneous Vaginal Delivery Complication(s): Laceration-Vaginal Laceration-Degree: 1st Hospital Course Hospital Course: normal Results Laboratory Results: WBC 12.5 10^3/uL (4.0-10.5) H 11/21/19 11:17 RBC 3.82 10^6/uL (3.72-5.28) 11/21/19 11:17 Hgb 10.1 g/dL (12.0-15.5) L 11/21/19 11:17 Hct 31.4 % (36.0-47.0) L 11/21/19 11:17 MCV 82 fl (80-97) 11/21/19 11:17 MCH 26.4 pg (27.0-33.4) L 11/21/19 11:17 MCHC 32.2 g/dL (32.0-36.0) 11/21/19 11:17 RDW 19.7 % (11.5-14.0) H 11/21/19 11:17 Plt Count 198 10^3/uL (150-450) 11/21/19 11:17 Lymph % (Auto) 26.5 % (13-45) 11/21/19 11:17 [place] % (Auto) 7.2 % (3-13) 11/21/19 11:17 Eos % (Auto) 1.3 % (0-6) 11/21/19 11:17 Baso % (Auto) 0.7 % (0-2) 11/21/19 11:17 Absolute Neuts (auto) 8.0 10^3/uL (1.7-8.2) 11/21/19 11:17 Absolute Lymphs (auto) 3.3 10^3/uL (0.5-4.7) 11/21/19 11:17 Absolute Monos (auto) 0.9 10^3/uL (0.1-1.4) 11/21/19 11:17 Absolute Eos (auto) 0.2 10^3/uL (0.0-0.6) 11/21/19 11:17 Absolute Basos (auto) 0.1 10^3/uL (0.0-0.2) 11/21/19 11:17 Total Counted 100 11/19/19 13:16 Seg Neutrophils % 64.3 % (42-78) 11/21/19 11:17 Seg Neuts % (Manual) 77 % (42-78) 11/19/19 13:16 Band Neutrophils % 1 % (3-5) L 11/19/19 13:16 Lymphocytes % (Manual) 17 % (13-45) 11/19/19 13:16 Monocytes % (Manual) 4 % (3-13) 11/19/19 13:16 Eosinophils % (Manual) 1 % (0-6) 11/19/19 13:16 Basophils % (Manual) 0 % (0-2) 11/19/19 13:16 Abs Neuts (Manual) 8.2 10^3/uL (1.7-8.2) 11/19/19 13:16 Abs Lymphs (Manual) 1.8 10^3/uL (0.5-4.7) 11/19/19 13:16 Abs Monocytes (Manual) 0.4 10^3/uL (0.1-1.4) 11/19/19 13:16 Absolute Eos (Manual) 0.1 10^3/uL (0.0-0.6) 11/19/19 13:16 Abs Basophils (Manual) 0.0 10^3/uL (0.0-0.2) 11/19/19 13:16 Platelet Comment ADEQUATE 11/19/19 13:16 Poikilocytosis SLIGHT 11/19/19 13:16 Anisocytosis 2+ 11/19/19 13:16 Tear Drop Cells SLIGHT 11/19/19 13:16 Ovalocytes SLIGHT 11/19/19 13:16 Sodium 135.6 mmol/L (137-145) L 11/21/19 11:17 Potassium 3.9 mmol/L (3.6-5.0) 11/21/19 11:17 Chloride 105 mmol/L (98-107) 11/21/19 11:17 Carbon Dioxide 23 mmol/L (22-30) 11/21/19 11:17 Anion Gap 8 (5-19) 11/21/19 11:17 BUN 9 mg/dL (7-20) 11/21/19 11:17 Creatinine 0.64 mg/dL (0.52-1.25) 11/21/19 11:17 Est GFR ( Amer) > 60 (>60) 11/21/19 11:17 Est GFR (MDRD) Non-Af > 60 (>60) 11/21/19 11:17 Glucose 76 mg/dL (75-110) 11/21/19 11:17 Calcium 8.9 mg/dL (8.4-10.2) 11/21/19 11:17 Total Bilirubin 0.4 mg/dL (0.2-1.3) 11/21/19 11:17 Direct Bilirubin 0.2 mg/dL (0.0-0.4) 11/21/19 11:17 Neonat Total Bilirubin Not Reportable 11/21/19 11:17 Neonat Direct Bilirubin Not Reportable 11/21/19 11:17 Neonat Indirect Bili Not Reportable 11/21/19 11:17 AST 36 U/L (14-36) 11/21/19 11:17 ALT 12 U/L (<35) 11/21/19 11:17 Alkaline Phosphatase 96 U/L (38-126) 11/21/19 11:17 Total Protein 5.7 g/dL (6.3-8.2) L 11/21/19 11:17 Albumin 2.6 g/dL (3.5-5.0) L 11/21/19 11:17 Urine Color YELLOW 11/19/19 10:32 Urine Appearance CLOUDY 11/19/19 10:32 Urine pH 6.0 (5.0-9.0) 11/19/19 10:32 Ur Specific Rena Lara 1.010 11/19/19 10:32 Urine Protein NEGATIVE mg/dL (NEGATIVE) 11/19/19 10:32 Urine Glucose (UA) NEGATIVE mg/dL (NEGATIVE) 11/19/19 10:32 Urine Ketones 20 mg/dL (NEGATIVE) H 11/19/19 10:32 Urine Blood MODERATE (NEGATIVE) H 11/19/19 10:32 Urine Nitrite NEGATIVE (NEGATIVE) 11/19/19 10:32 Urine Bilirubin NEGATIVE (NEGATIVE) 11/19/19 10:32 Urine Urobilinogen NEGATIVE mg/dL (<2.0) 11/19/19 10:32 Ur Leukocyte Esterase LARGE (NEGATIVE) H 11/19/19 10:32 Urine Ascorbic Acid NEGATIVE (NEGATIVE) 11/19/19 10:32 Urine Opiates Screen NEGATIVE 11/19/19 10:32 Urine Methadone Screen NEGATIVE 11/19/19 10:32 Ur Barbiturates Screen NEGATIVE 11/19/19 10:32 Ur Phencyclidine Scrn NEGATIVE 11/19/19 10:32 Ur Amphetamines Screen NEGATIVE 11/19/19 10:32 U Benzodiazepines Scrn NEGATIVE 11/19/19 10:32 Urine Cocaine Screen NEGATIVE 11/19/19 10:32 U Marijuana (THC) Screen NEGATIVE 11/19/19 10:32 RPR NONREACTIVE (NONREACTIVE) 11/19/19 13:16 Blood Type A POSITIVE 11/19/19 13:16 Antibody Screen NEGATIVE 01/15/20 13:16 Plan Health Concerns: fever precautions, N&V precautions reviewed. Instructed to ambulate, encourage passing gas Plan of Treatment: d/c to home. F/u with [facility] in 4 wks Time Spent: Less than 30 Minutes
[2019-11-21 13:13] VITALS: BP 130/69
== END 2019-11-21 17:10 | disposition home or self-care (01) | DRG 806 ==
LOC: LC 10:24 → LR 12:53 → EEVIPCON 12:53 → 2S 11-20 01:21
PROVIDERS: ADMIT Student in an Organized Health Care Education/Training Program; ATTEND Student in an Organized Health Care Education/Training Program
PROC: 10E0XZZ Delivery of Products of Conception, External Approach (ICD-10-PCS; principal; 2019-11-19)
PROC: 0HQ9XZZ Repair Perineum Skin, External Approach (ICD-10-PCS; 2019-11-19)
DX: O99.824 Streptococcus B carrier state complicating childbirth (principal); D62 Acute posthemorrhagic anemia; Z37.0 Single live birth; O99.214 Obesity complicating childbirth; O99.354 Diseases of the nervous system complicating childbirth; E66.9 Obesity, unspecified; O77.0 Labor and delivery complicated by meconium in amniotic fluid; O70.0 First degree perineal laceration during delivery; Z3A.40 40 weeks gestation of pregnancy; O99.02 Anemia complicating childbirth; Z86.19 Personal history of other infectious and parasitic diseases; Z87.891 Personal history of nicotine dependence; G40.909 Epilepsy, unspecified, not intractable, without status epilepticus
CPT/HCPCS: 36415; 80053; 80307; 81005; 85025; 85027; 86592; 86850; 86900; 86901; J2540; J2590; J3010; J3490

== ENCOUNTER 2020-06-01 18:51 | Emergency (ER) | payer OTHER, MEDICAID ==
--- NOTE | 2020-06-01 20:29 | RADIOLOGY REPORT (SQ) ---
3 VIEWS OF LEFT FOURTH TOE HISTORY: 4th toe pain. COMPARISON: None. FINDINGS: There is an acute mildly displaced fracture of the fourth proximal phalanx with overlying soft tissue swelling. No dislocation is seen. No radiopaque foreign body is identified. IMPRESSION: Acute mildly displaced fracture of the fourth proximal phalanx.
--- NOTE | 2020-06-01 21:49 | ER Document Report ---
HPI - HPI Time Seen by Provider: 06/01/20 19:55 Pain Level: 3 Context: Patient is a 35-year-old female presents emergency department with a chief complaint of left fourth toe pain. Patient states that a couple days ago she ended up stubbing her toe. She was seen by urgent care and and was given a postop shoe. She has been walking on her foot. - ROS Systems Reviewed and Negative: Yes All other systems reviewed and negative - GASTROINTESTINAL Gastrointestinal: DENIES: Abdominal Pain, Nausea, Patient vomiting - REPRODUCTIVE Reproductive: DENIES: : - MUSCULOSKELETAL Musculoskeletal: REPORTS: Extremity pain - See HPI.. DENIES: Back Pain, Neck Pain, Swelling - DERM Skin Color: Normal Skin Problems: None Past Medical History - Social History Smoking Status: Never Smoker Family History: None, Reviewed & Not Pertinent Patient has homicidal ideation: No Neurological Medical History: Reports: Hx Migraine, Hx Seizures - Patient states that she had a diagnosis of "stress-induced convulsions" Renal/ Medical History: Denies: Hx Peritoneal Dialysis - Immunizations Hx Diphtheria, Pertussis, Tetanus Vaccination: Yes Vertical Provider Document - CONSTITUTIONAL Agree With Documented VS: Yes Exam Limitations: No Limitations General Appearance: No Apparent Distress - INFECTION CONTROL TRAVEL OUTSIDE OF THE [place] IN LAST 30 DAYS: No - HEENT HEENT: Atraumatic, Normocephalic, PERRLA - NECK Neck: Normal Inspection - RESPIRATORY Respiratory: No Respiratory Distress - CARDIOVASCULAR Cardiovascular: Regular Rate, Regular Rhythm Pulses: Normal: Radial, Posterior tibial, Dorsalis pedis - MUSCULOSKELETAL/EXTREMETIES Musculoskeletal/Extremeties: FROM, Tender - Left fourth toe, No Edema. negative: Eccymosis - NEURO Level of Consciousness: Awake, Alert, Appropriate Motor/Sensory: No Motor Deficit, No Sensory Deficit - DERM Integumentary: Warm, Dry, No Rash Course - Re-evaluation Re-evalutation: 06/01/20 Patient has a fourth toe fracture that is mildly displaced. Patient was not given crutches at urgent care, therefore we give her crutches. Referred her to orthopedics. There is no open skin, therefore no antibiotics are necessary. No dislocation noted. Patient was instructed on paulina tape, which she has been doing at home. Capillary refill less than 3 seconds. Dorsalis pedis and posterior tibial pulses 2+. No vascular compromise noted. Follow-up precautions were given. Verbal discharge instructions were given to the patient. They verbalized understanding. They are stable for discharge. - Vital Signs Vital signs: Temp Pulse Resp BP Pulse Ox 99.3 F 72 18 137/83 H 99 06/01/20 18:57 06/01/20 18:57 06/01/20 18:57 06/01/20 18:57 06/01/20 18:57 Procedures - Immobilization Left Foot Pre-Proc Neuro Vasc Exam: Normal Immobilizer type: Crutches Performed by: PCT Post-Proc Neuro Vasc Exam: Normal, Unchanged from pre-exam Alignment checked and good: Yes Discharge - Discharge Clinical Impression: Fracture of fourth toe, left, closed Qualifiers: Encounter type: initial encounter Qualified Code(s): S92.502A - Displaced unspecified fracture of left lesser toe(s), initial encounter for closed fract ure Condition: Stable Disposition: HOME, SELF-CARE Additional Instructions: You were seen today in the emergency department for toe pain. You do have a fracture. Please use your crutches. Follow-up with orthopedics in regards to this visit. You can take ibuprofen 600 mg and acetaminophen thousand milligrams every 6 hours as needed for your pain. Referrals: RUBEN VALENTIN MD [ACTIVE STAFF] - Follow up as needed DANIEL WAITE MD [ACTIVE STAFF] - Follow up in 1 week CIRO BRO MD [ACTIVE PROVISIONAL STAFF] - Follow up in 1 week MITZY GAN JR, DO [ACTIVE PROVISIONAL STAFF] - Follow up in 1 week
[2020-06-01 21:58] VITALS: BP 139/86
== END 2020-06-01 21:57 | disposition home or self-care (01) ==
LOC: ER 18:51
DX: S92.502A Displaced unspecified fracture of left lesser toe(s), initial encounter for closed fracture (principal); M79.674 Pain in right toe(s); X58.XXXA Exposure to other specified factors, initial encounter
CPT/HCPCS: 99283